=== PATIENT | male | born 1945 | race Caucasian/White ===

== ENCOUNTER 2018-11-15 00:22 | Observation (INO) | payer MEDICARE, OTHER ==
[2018-11-14 13:21] LABS: INR 0.98
[~2018-11-15] VITALS: Ht 182.9 cm; Wt 76.7 kg
[~2018-11-15 00:22] MED LIST: AMLO-127 PO; CHLOR25 PO; OMEP40CA48 PO; POTA-23 PO; THYROXINE PO
--- NOTE | 2018-11-15 04:39 | LEVENE H&P ---
DATE OF ADMISSION: November 15, 2018 IDENTIFICATION/CHIEF COMPLAINT Juan is a 73-year-old gentleman with chief complaint of left knee pain. HISTORY OF PRESENT ILLNESS Patient has a longstanding history of knee arthritis, progressively painful and debilitating, refractory to conservative care. Surgery is indicated to relieve symptoms after failure of nonoperative measures. PAST MEDICAL HISTORY Notable for hypertension, controlled on medication; acid reflux disease. ALLERGIES He has no known drug allergies. CURRENT MEDICATIONS 1. K-Sammie 10 mEq p.o. daily. 2. Chlorthalidone 2.5 mg p.o. daily. 3. Thyroxine 100 mcg p.o. daily. 4. Amlodipine 10 mg p.o. daily. 5. Omeprazole 40 mg p.o. daily. PAST SURGICAL HISTORY Notable for cholecystectomy, tonsillectomy, appendectomy. FAMILY HISTORY Noncontributory. SOCIAL HISTORY Negative for tobacco and alcohol use. He smoked a pack a day for 25 years, quitting in 1987. No current tobacco use. REVIEW OF SYSTEMS Noncontributory. PHYSICAL EXAMINATION GENERAL: This is a well-developed, well-nourished male who appears stated age. HEENT: Normocephalic, atraumatic. NECK: Supple. LUNGS: Clear. HEART: Regular rate and rhythm. ABDOMEN: Soft. ORTHOPEDIC: Left knee has crepitus. Effusion is present. Gross stability is good. Extension function is intact. Stiff at end range. Calves nontender. Neurovascular function is intact. Radiographs demonstrate end-stage knee arthritis. ASSESSMENT Left knee end-stage degenerative joint disease, progressively painful and debilitating, refractory to conservative care. PLAN I reviewed the options today again, including continued nonoperative care versus the option of surgical intervention. He has elected to proceed with total knee arthroplasty. Nature of this procedure, risks, benefits, the anticipated rehabilitative course were reviewed. Risks include but are not limited to , major medical or anesthetic complication, infection, neurovascular injury, blood transfusion, stiffness, scarring, fracture, tendon rupture, instability, implant loosening, migration or failure, blood persistent or recurrent pain, need for additional surgery and other unforeseen. He understands and wishes to proceed. A signed permit is placed in the chart. No guarantees are given or implied. [facility]ITAL[facility]
[2018-11-15] MEDS ORDERED: VANCOMYCIN 1 GM VIAL ONE (06:58)
[2018-11-15] MEDS ORDERED: TRANEXAMIC AC 1000 MG/10ML SDV 1,000 MG in DEXTROSE 5% 50 ML BAG 50 ML IV ONE (08:30)
[2018-11-15] MEDS ORDERED: ROPIVACAINE/EPI/CLONIDINE/KET 50 ML SYRINGE INJ ONE (08:30)
[2018-11-15] MEDS ORDERED: LIDOCAINE/SOD BICARB 8.4% SYR ID ONE (09:00)
[2018-11-15] MEDS ORDERED: ACETAMINOPHEN 500 MG TAB PO ONE (09:00)
[2018-11-15] MEDS ORDERED: CELECOXIB 200 MG CAP PO ONE (09:00)
[2018-11-15] MEDS ORDERED: PREGABALIN 75 MG CAPSULE PO ONE (09:00)
[2018-11-15] MEDS ORDERED: ceFAZolin(*) 1 GM VIAL 1 GM in NS(*) 0.9% 100 ML MINI-BAG 100 ML IVPB ONE (09:00)
[2018-11-15] MEDS ORDERED: MIDAZOLAM 2 MG/2 ML VIAL IVP PRN (09:00)
[2018-11-15] MEDS ORDERED: NORMOSOL R SOLN(*) 1000 ML BAG 1,000 ML IV PRN ×2 (09:30→19:05)
[2018-11-15 11:31] VITALS: BP 146/85
[2018-11-15] MEDS ORDERED: fentaNYL CITR 100 MCG/2 ML AMP ONE ×2 (12:49→15:51)
[2018-11-15] MEDS ORDERED: PROPOFOL EMUL(*) 10MG/ML 20 ML 20 ML ONE (12:50)
[2018-11-15] MEDS ORDERED: LIDOCAINE 2% IV 100 MG/5ML SYR ONE (12:50)
[2018-11-15] MEDS ORDERED: KETAMINE HCL 200 MG/20 ML MDV ONE ×2 (15:13→16:04)
[2018-11-15] MEDS ORDERED: DEXAMETHASONE SOD PHOS 10MG/ML ONE (15:14)
[2018-11-15] MEDS ORDERED: KETOROLAC 30 MG/ML VIAL ONE (15:14)
[2018-11-15] MEDS ORDERED: ONDANSETRON 4 MG/2 ML VIAL ONE (15:40)
--- NOTE | 2018-11-15 17:28 | RADIOLOGY IMAGING REPORT ---
FACILITY: [facility] [place] PATIENT NAME: Juan Stevenson : 1945 MR: [id number] V: [id number] EXAM DATE: ORDERING PHYSICIAN: JONH WHITLOCK TECHNOLOGIST: Location: [facility] Patient: Juan Stevenson : 1945 Visit/Account:[id number] Date of Sevice: 11/15/2018 Examination: KNEE LIMITED LEFT Comparison: None. History: Postoperative near-complete loss. Findings: Normal postoperative alignment of the left total knee arthroplasty. No periprosthetic fract ure. Expected postoperative change in the soft tissues. IMPRESSION: Unremarkable postoperative appearance of the left total knee arthroplasty. Report Dictated By: Froylan Queen MD at 11/15/2018 5:21 PM Report E-Signed By: Froylan Queen MD at 11/15/2018 5:21 PM WSN:[id number]
--- NOTE | 2018-11-15 18:58 | Hospitalist Progress Note ---
Subjective Progress Notes Subjective Patient seen post-op. Reviewed PMHx (SCCa tonsil/lung, HTN, GERD, hypothyroidism) and medications. At present, he reports doing well. No CP, SOB, N/V. Physical Exam Vital Signs Date Time Temp Pulse Resp B/P (MAP) Pulse Ox O2 Delivery O2 Flow Rate FiO2 11/15/18 18:31 92 Nasal Cannula 2.0 11/15/18 18:10 85 20 11/15/18 11:31 98.3 146/85 (105) General Appearance: Alert, Awake Neck: Other (radiation skin changes) Cardiovascular: Regular Rate and Rhythm Respiratory: Clear to Auscultation Psych: Alert & Oriented X3 Assessment and Plan Problems: (1) S/P knee replacement Status: Acute Assessment & Plan: He appears stable post-op. He has been started on aspirin 325mg daily for DVT prophylaxis per Dr. Gonsales. (2) HTN (hypertension) Status: Chronic Assessment & Plan: Monitor BPs. Will resume his amlodipine and chlorthalidone as needed for HTN. (3) Hypothyroidism Status: Chronic Assessment & Plan: Continue replacement therapy with L-thyroxine 100mcg PO daily. (4) GERD (gastroesophageal reflux disease) Status: Chronic Assessment & Plan: Continue PPI therapy - Protonix while here. (5) Tonsil cancer Status: Resolved Assessment & Plan: He follows with [facility]. He was felt to be free of disease at his last appointment. (6) Lung cancer Status: Resolved Assessment & Plan: See above. Exam Sepsis Risk: No Definite Risk CAM WANG MD November 15, 2018 18:58
[2018-11-15 19:00] VITALS: BP 108/63
[2018-11-15] MEDS ORDERED: MAGNESIUM HYDROXIDE* 30ML UDCP PO PRN (19:05)
[2018-11-15] MEDS ORDERED: ZOLPIDEM TARTRATE 5 MG TAB PO PRN (19:05)
[2018-11-15] MEDS ORDERED: ACETAMINOPHEN 325 MG TAB PO PRN (19:05)
[2018-11-15] MEDS ORDERED: APAP/HYDROCODONE 325/7.5 TAB PO PRN (19:05)
[2018-11-15] MEDS ORDERED: diphenhydrAMINE 25 MG CAP PO PRN (19:05)
[2018-11-15] MEDS ORDERED: DIAZEPAM 5 MG TAB PO PRN (19:05)
[2018-11-15] MEDS ORDERED: BENZOCAINE/MENTHOL 1 EACH LOZG PO PRN (19:05)
[2018-11-15] MEDS ORDERED: FLUSH 10 ML SYR IVP PRN (19:05)
[2018-11-15] MEDS ORDERED: BISACODYL 10 MG SUPP PR PRN (19:05)
[2018-11-15] MEDS ORDERED: PROMETHAZINE 25 MG/ML 1 ML AMP IVP PRN (19:05)
[2018-11-15] MEDS ORDERED: diphenhydrAMINE 50 MG/ML VIAL IVP PRN (19:05)
[2018-11-15 20:10] VITALS: BP 113/69
[2018-11-15] MEDS: PANTOPRAZOLE SOD 40 MG TABEC PO SCH (20:59)
[2018-11-15 21:00] VITALS: BP 113/67
[2018-11-15 22:00] VITALS: BP 108/57
[2018-11-15 23:00] VITALS: BP 109/60
[2018-11-16] MEDS ORDERED: NS(*) 0.9% 250 ML BAG 250 ML ONE (00:33)
[2018-11-16] MEDS: ceFAZolin(*) 1 GM VIAL 1 GM in NS(*) 0.9% 100 ML MINI-BAG 100 ML IVPB SCH ×3 (00:38→15:26)
--- NOTE | 2018-11-16 03:08 | OPERATIVE REPORT 1 ---
EVENT DATE: November 15, 2018 SURGEON: Elliott Gonsales MD ANESTHESIOLOGIST: Jean Oneil MD ANESTHESIA: General plus spinal. SCREEN MAKING TECHNICIAN: Mendoza Covington PA-C PREOPERATIVE DIAGNOSIS Left knee degenerative joint disease. POSTOPERATIVE DIAGNOSIS Left knee degenerative joint disease. PROCEDURE PERFORMED Left total knee arthroplasty. ESTIMATED BLOOD LOSS Minimal. DRAINS None. SPECIMENS None. COMPLICATIONS None apparent. TOURNIQUET TIME 45 minutes. IMPLANTS USED Nathen Triathlon knee system with 4 left PS femur, 5 standard tibial base plate, 36 mm universal symmetric all-polyethylene patellar button, 11 mm PS tibial tray liner. Polyethylene is X3. INDICATIONS Juan is a 73-year-old gentleman with intractable pain and disability related to end-stage knee arthritis. Surgery is indicated to relieve symptoms after failure of nonoperative measures. DESCRIPTION OF PROCEDURE The patient was taken to the operating room and placed supine on the operating table. General anesthesia was induced after spinal block was placed by the anesthesiologist. Antibiotics and TXA were administered IV. The left lower extremity was prepped and draped in the usual sterile fashion for knee arthroplasty. The limb was exsanguinated with an Esmarch bandage. The tourniquet was inflated to 250 mmHg. A midline longitudinal incision was made and carried down through the skin and subcutaneous tissue to the extensor mechanism. A full-thickness flap was developed far enough medially to allow medial parapatellar arthrotomy to be performed. The patella was everted. The knee was brought into a flexed position. The fat pad, anterior horns of the menisci and cruciate ligaments were debrided. Subperiosteal medial release was done in a titrated fashion to start to balance the deformity. A step drill was used to enter the distal femur. A [id number] alignment guide was used to engage the isthmus. Cut was set for 5 degrees of valgus relative to the anatomic axis. A 10 mm resection block was applied and pinned. Cut was made with an oscillating saw. The AP sizing guide was applied to the distal femoral cut and positioned for 3 degrees of external rotation relative to the posterior condyles. A size 4 was optimal without risk of notching. The four-in-one cutting block was applied. Anterior, posterior, posterior chamfer and anterior chamfer cuts were made respectively. A PS block was applied and centered mediolateral, and the bone was removed from the box. The trial femur has nice [id number] fit. Attention was turned to tibial preparation. The extramedullary guide was applied and positioned for varus, valgus, posterior slope and rotation. This was set to resect 9 from the relatively intact lateral tibial plateau. It was dropped down a millimeter or two to ensure an adequate cut. The block was pinned, extramedullary alignment check was made, and the cut was made with an oscillating saw. After osteophyte removal, gaps were balanced and symmetric with no additional soft tissue releases required. The size 5 tibial base plate provides optimal bone coverage without soft tissue overhang, and this was inserted along with a trial liner and trial femur. The knee was brought to extension. The patella was taken from a starting thickness of 23 to a residual of 14 with a patellar clamp and oscillating saw. The 36 provides optimal coverage without overhang. Lug holes were drilled. The patella tracks nicely with a no-touch technique. Final tibial preparation consisted of ensuring appropriate rotational and translational position of the component. The box was reamed and the fin was punched. Surfaces were lavaged. A mix of methacrylate is made and the components were cemented in a single stage. The cement was fully polymerized. Tourniquet was deflated and hemostasis assured. The wounds were copiously lavaged again to remove all loose debris. The 11 PS tibial tray liner fills up the gap ideally, allowing the knee to drop to full extension without hyperextension, providing optimal soft tissue tension and stability. The tray was lavaged and dried and the liner was locked into the base plate. Joint was reduced. Arthrotomy was closed in flexion with #2 Ethibond, subcu with 3-0 Vicryl and skin with a ZipLine closure. Xeroform was applied followed by a dry sterile dressing and a compression wrap. The patient was awakened from anesthesia and taken to the recovery room in stable condition, having tolerated the procedure well. Plan is for standard TKA rehab protocol. [facility]ITAL[facility]
[2018-11-16] MEDS: LEVOTHYROXINE SOD 0.1 MG TAB PO SCH (06:15)
[2018-11-16] MEDS ORDERED: HYDR-654 PO (07:40)
[2018-11-16] MEDS: CELECOXIB 200 MG CAP PO SCH ×2 (07:42→17:31)
[2018-11-16 07:44] VITALS: BP 109/60
[2018-11-16] MEDS: amLODIPine BESYL(*) 5 MG TAB PO SCH (09:00)
[2018-11-16] MEDS ORDERED: ASPIRIN 325 MG TAB PO SCH (09:00)
[2018-11-16] MEDS: CHLORTHALIDONE 25 MG TAB PO SCH (09:00)
[2018-11-16] MEDS: ASPIRIN 325 MG TAB PO SCH (09:29)
[2018-11-16] MEDS: POTASSIUM CHL 10 MEQ TABCR PO SCH (09:30)
--- NOTE | 2018-11-16 10:04 | NUR ---
Physical Therapy Impression PT eval completed. Pt already up with nursing through the night and tolerated ambulation in hallway with FWW x 150' with SBA/modified indep Physical Therapy Goals 1. Pt to be SBA/Modified for 4 steps with rail. 2. Pt to be modified indep for sup<>sit 3. Pt to be modified indep for sit<>stand 4. Pt to ambulate x 150' with FWW and Modified indep Patient's Goals
[2018-11-16] MEDS ORDERED: FAMOTIDINE 20 MG TAB PO ONE (11:35)
[2018-11-16 12:43] VITALS: BP 115/73
--- NOTE | 2018-11-16 12:51 | Hospitalist Progress Note ---
Subjective Progress Notes Subjective RAYRAY overnight, working with PT. Anticipate discharge tomorrow. Physical Exam Vital Signs Date Time Temp Pulse Resp B/P (MAP) Pulse Ox O2 Delivery O2 Flow Rate FiO2 11/16/18 07:52 86 11/16/18 07:50 Nasal Cannula 2.0 11/16/18 07:44 97.8 70 16 109/60 (76) Intake and Output 11/16/18 07:00 Intake Total 5240 ml Output Total 1200 ml Balance 4040 ml Intake Oral 1740 ml IV Total 1800 ml Other 1700 ml Output Urine Total 1150 ml Estimated Blood Loss 50 ml General Appearance: Alert, Awake, No Acute Distress Cardiovascular: Normal Rhythm & Peripheral Pulses Respiratory: No Respiratory Distress GI: Soft and Non-Tender Extremities: Warm, Pulses, Perfused Assessment and Plan Problems: (1) S/P knee replacement Status: Acute Assessment & Plan: He has been started on aspirin 325mg daily for DVT prophylaxis per Dr. Gonsales. (2) HTN (hypertension) Status: Chronic Assessment & Plan: Monitor BPs. Will resume his amlodipine and chlorthalidone as needed for HTN. (3) Hypothyroidism Status: Chronic Assessment & Plan: Continue replacement therapy with L-thyroxine 100mcg PO daily. (4) GERD (gastroesophageal reflux disease) Status: Chronic Assessment & Plan: Continue PPI therapy - Protonix while here. (5) Tonsil cancer Status: Resolved Assessment & Plan: He follows with [facility]. He was felt to be free of disease at his last appointment. (6) Lung cancer Status: Resolved Assessment & Plan: See above. Exam Sepsis Risk: No Definite Risk MCKNIGHT SCOOBYMULUGETA November 16, 2018 12:51
--- NOTE | 2018-11-16 14:44 | NUR ---
Physical Therapy Impression Pt completed stairs and PT goals met. Pt ready for d/c from a mobility stand point. Physical Therapy Goals 1. Pt to be SBA/Modified for 4 steps with rail. 2. Pt to be modified indep for sup<>sit 3. Pt to be modified indep for sit<>stand 4. Pt to ambulate x 150' with FWW and Modified indep Patient's Goals
[2018-11-16 15:30] VITALS: BP 112/61
[2018-11-16 20:14] VITALS: BP 143/76
[2018-11-16] MEDS: DOCUSATE SODIUM 100 MG CAP PO SCH (20:51)
[2018-11-16] MEDS: PANTOPRAZOLE SOD 40 MG TABEC PO SCH (20:51)
[2018-11-16 23:48] VITALS: BP 152/103
[2018-11-16 23:57] VITALS: BP 107/62
[2018-11-17 03:04] VITALS: BP 109/73
[2018-11-17] MEDS: LEVOTHYROXINE SOD 0.1 MG TAB PO SCH (05:27)
[2018-11-17 07:30] VITALS: BP 112/67
[2018-11-17] MEDS ORDERED: CHLOR25 PO (07:48)
[2018-11-17] MEDS ORDERED: LEVO-3 PO (07:49)
[2018-11-17] MEDS ORDERED: ASPI-757 PO (07:52)
[2018-11-17] MEDS: CELECOXIB 200 MG CAP PO SCH (07:52)
[2018-11-17] MEDS: amLODIPine BESYL(*) 5 MG TAB PO SCH (09:00)
[2018-11-17] MEDS: CHLORTHALIDONE 25 MG TAB PO SCH (09:00)
[2018-11-17] MEDS ORDERED: POLYETHYLENE GLYCOL 17 GM PKT PO SCH (09:00)
[2018-11-17] MEDS: POTASSIUM CHL 10 MEQ TABCR PO SCH (09:16)
[2018-11-17] MEDS: DOCUSATE SODIUM 100 MG CAP PO SCH (09:16)
[2018-11-17] MEDS: ASPIRIN 325 MG TAB PO SCH (09:16)
--- NOTE | 2018-11-17 11:45 | Hospitalist Progress Note ---
Subjective Progress Notes Subjective He was admitted s/p knee replacement. He has no complaints this morning. He would like to go home today. Patient Complains of: Cardiovascular: No: Chest Pain Respiratory: No: Shortness of Breath Physical Exam Vital Signs Date Time Temp Pulse Resp B/P (MAP) Pulse Ox O2 Delivery O2 Flow Rate FiO2 11/17/18 10:21 93 Room Air 11/17/18 07:30 98.1 71 16 112/67 (82) 11/17/18 03:04 1.0 Intake and Output 11/17/18 07:00 Intake Total 2760 ml Balance 2760 ml Intake Oral 2560 ml IV Total 200 ml # Voids 6 General Appearance: Alert, Awake, No Acute Distress, Afebrile Neuro: No Gross deficits Cardiovascular: Regular Rate and Rhythm Respiratory: No Respiratory Distress, Clear to Auscultation GI: Soft and Non-Tender Psych: Alert & Oriented X3, Appropriate Mood & Affect Assessment and Plan Problems: (1) S/P knee replacement Status: Acute Assessment & Plan: He has been started on aspirin 325mg daily for DVT prophylaxis per Dr. Gonsales. (2) HTN (hypertension) Status: Chronic Assessment & Plan: Monitor BPs. Will resume his amlodipine and chlorthalidone as needed for HTN. (3) Hypothyroidism Status: Chronic Assessment & Plan: Continue replacement therapy with L-thyroxine 100mcg PO daily. (4) GERD (gastroesophageal reflux disease) Status: Chronic Assessment & Plan: Continue PPI therapy - Protonix while here. (5) Tonsil cancer Status: Resolved Assessment & Plan: He follows with [facility]. He was felt to be free of disease at his last appointment. (6) Lung cancer Status: Resolved Assessment & Plan: See above. Exam Sepsis Risk: No Definite Risk Problem Qualifiers (1) HTN (hypertension): Hypertension type: essential hypertension Qualified Codes: I10 - Essential (primary) hypertension ANKIT WRIGHTP November 17, 2018 11:45
== END 2018-11-17 07:30 | disposition home or self-care (01) ==
LOC: OR 00:22 → MED 18:10 → INTOOBSV 18:10
PROVIDERS: ADMIT Orthopaedic Surgery; ATTEND Orthopaedic Surgery
DX: M17.12 Unilateral primary osteoarthritis, left knee (principal); I10 Essential (primary) hypertension; Z79.01 Long term (current) use of anticoagulants
CPT/HCPCS: 27447; 36415; 73560; 85610; 86850; 86900; 86901; 97116; 97161; 97530; A9270; C1713; C1776; G0378; J0690; J1100; J2001; J2250; J2405; J2704; J3010; J3370; J3490; J7060; J1885